=== PATIENT | male | born 1990 | race Caucasian/White ===

== ENCOUNTER 2019-12-11 20:18 | Emergency (ER) | payer MEDICAID ==
[~2019-12-11] VITALS: Ht 185.4 cm; Wt 65.9 kg
[2019-12-11 20:36] VITALS: Ht 185.4 cm; Wt 65.9 kg
[2019-12-11] MEDS ORDERED: CLEOCIN HCL300 MG PO (21:31)
[2019-12-11 21:43] VITALS: BP 139/83
== END 2019-12-11 21:44 | disposition home or self-care (01) ==
LOC: D.ER 20:18
DX: S91.311A Laceration without foreign body, right foot, initial encounter (principal); L08.9 Local infection of the skin and subcutaneous tissue, unspecified; Y09 Assault by unspecified means